=== PATIENT | female | born 1990 | race Hispanic/Latino ===

== ENCOUNTER 2022-05-26 17:59 | Inpatient (IN) | payer OTHER ==
[~2022-05-26] VITALS: Ht 154.9 cm; Wt 70.1 kg
[2022-05-26 18:20] VITALS: BP 103/59
[2022-05-26] MEDS ORDERED: ONDANSETRON 4MG INJ IV PRN (18:30)
[2022-05-26] MEDS ORDERED: NITROGLYCERIN 0.4 MG SL TAB SL PRN (18:30)
[2022-05-26 19:26] LABS: BASOPHILS % (AUTO) 0.4 % (0.0-5.0); HEMATOCRIT 33.2 % (36-48); LYMPHOCYTES % (AUTO) 32.7 % (21.0-51.0); MEAN CORPUSCULAR HEMOGLOBIN 27.7 pg (27.0-33.0); MEAN CORPUSCULAR HGB CONC 32.8 g/dL (32.0-36.0); MEAN CORPUSCULAR VOLUME 84.5 fL (79-99); MONOCYTES % (AUTO) 5.9 % (3.0-13.0); NEUTROPHILS % (AUTO) 57.6 % (40.0-77.0); PLATELET COUNT (AUTO) 350 K/uL (130-400); RED BLOOD CELL COUNT(AUTO) 3.93 MIL/uL (4.00-5.50); RED CELL DISTRIBUTION WIDTH 13.4 % (11.0-15.5); WHITE BLOOD COUNT (AUTO) 9.7 K/uL (4.8-10.8)
[2022-05-26 19:28] LABS: INR 0.99 (0.85-1.15); PROTHROMBIN TIME 10.8 SEC (9.6-11.6)
[2022-05-26 19:30] LABS: PARTIAL THROMBOPLASTIN TIME 31.8 SEC (26.3-35.5)
[2022-05-26] MEDS ORDERED: 0.9%NACL 50ML IV SCH (19:30)
[2022-05-26 19:36] LABS: ALBUMIN 2.8 g/dL (3.5-5.0); CREATININE 0.7 mg/dL (0.5-1.5); MAGNESIUM 1.8 mg/dL (1.80-2.40); POTASSIUM 3.2 mmol/L (3.5-5.1); TOTAL PROTEIN, SERUM 6.5 g/dL (6.0-8.3)
[2022-05-26] MEDS ORDERED: MAGNESIUM 2GM PREMIX 50ML 50 ML IV PRN (20:00)
[2022-05-26] MEDS: FAMOTIDINE 20MG VIAL IV SCH (20:08)
[2022-05-26] MEDS: ZOSYN 3.375GM +NS 50ML IVPB SCH (20:08)
[2022-05-26] MEDS: 0.9%NACL 1000ML 1,000 ML IV SCH (20:09)
[2022-05-26] MEDS ORDERED: BISACODYL 10 MG SUPP.RECT RC SCH (20:30)
[2022-05-26 21:13] VITALS: BP 119/66
[2022-05-26] MEDS: LIDOCAINE HCL-MPF 1% 2ML VIAL IV PRN (22:01)
[2022-05-26] MEDS: POTASSIUM CHLORIDE 20MEQ/100ML 100 ML IV PRN (22:01)
[2022-05-26 22:05] LABS: APPEARANCE,URINE TURBID (CLEAR); BACTERIA,URINE RARE /HPF (None Seen); BILIRUBIN,URINE 1 mg/dL (NEGATIVE); COLOR,URINE DARK-ORANGE (YELLOW); GLUCOSE, URINE (UA) NEGATIVE (NEGATIVE); KETONES,URINE 150 mg/dL (NEGATIVE); LEUKOCYTE ESTERASE ,URINE 250 Leu/uL (NEGATIVE); MUCUS,URINE MOD LPF (None Seen); NITRATE,URINE NEGATIVE (NEGATIVE); OCCULT BLOOD,URINE LARGE (NEGATIVE); OTHER CASTS, URINE 22 /LPF (None Seen); PROTEIN,URINE 70 mg/dL (NEGATIVE); RBC,URINE TNTC /HPF (0-1); UROBILINOGEN,URINE 12 mg/dL (0.2-1.0); WBC,URINE 26-50 /HPF (0-1); YEAST,URINE BUDDING FEW /HPF (None Seen)
[2022-05-27] VITALS (7 sets, daily range): BP systolic 105–116; BP diastolic 58–73
[2022-05-27] MEDS: ZOSYN 3.375GM +NS 50ML IVPB SCH ×3 (04:11→19:53)
[2022-05-27] MEDS: POTASSIUM CHLORIDE 20MEQ/100ML 100 ML IV PRN ×2 (04:16→11:40)
[2022-05-27] MEDS: LIDOCAINE HCL-MPF 1% 2ML VIAL IV PRN ×2 (04:17→11:40)
[2022-05-27] MEDS: 0.9%NACL 1000ML 1,000 ML IV SCH ×2 (06:32→15:22)
[2022-05-27 07:31] LABS: BASOPHILS % (AUTO) 0.6 % (0.0-5.0); HEMATOCRIT 32.4 % (36-48); LYMPHOCYTES % (AUTO) 23.9 % (21.0-51.0); MEAN CORPUSCULAR HEMOGLOBIN 27.8 pg (27.0-33.0); MEAN CORPUSCULAR HGB CONC 32.7 g/dL (32.0-36.0); MONOCYTES % (AUTO) 7.3 % (3.0-13.0); NEUTROPHILS % (AUTO) 63.9 % (40.0-77.0); PLATELET COUNT (AUTO) 338 K/uL (130-400); RED BLOOD CELL COUNT(AUTO) 3.81 MIL/uL (4.00-5.50); RED CELL DISTRIBUTION WIDTH 13.8 % (11.0-15.5)
[2022-05-27 07:45] LABS: ALBUMIN 2.7 g/dL (3.5-5.0); CREATININE 0.7 mg/dL (0.5-1.5); MAGNESIUM 2.2 mg/dL (1.80-2.40); POTASSIUM 3.4 mmol/L (3.5-5.1); TOTAL PROTEIN, SERUM 6.5 g/dL (6.0-8.3)
[2022-05-27] MEDS: FAMOTIDINE 20MG VIAL IV SCH ×2 (09:11→19:53)
[2022-05-27] MEDS ORDERED: GADOTERATE MEGLUMINE 10 MMOL/20 ML VIAL IV ONE (11:53)
[2022-05-27] MEDS ORDERED: LIDOCAINE HCL-MPF 1% 2ML VIAL IV PRN (17:00)
[2022-05-27] MEDS ORDERED: POTASSIUM CHLORIDE 20MEQ/100ML 100 ML IV PRN (17:00)
[2022-05-27] MEDS: KCL 20 MEQ ERTAB PO PRN ×2 (18:32→21:34)
[2022-05-28] VITALS (25 sets, daily range): BP systolic 109–139; BP diastolic 56–92
[2022-05-28] MEDS: 0.9%NACL 1000ML 1,000 ML IV SCH ×3 (00:30→20:35)
[2022-05-28] MEDS: ZOSYN 3.375GM +NS 50ML IVPB SCH ×3 (03:08→20:34)
[2022-05-28 05:11] LABS: BASOPHILS % (AUTO) 0.4 % (0.0-5.0); LYMPHOCYTES % (AUTO) 27.5 % (21.0-51.0); MEAN CORPUSCULAR HEMOGLOBIN 27.7 pg (27.0-33.0); MEAN CORPUSCULAR HGB CONC 32.2 g/dL (32.0-36.0); MONOCYTES % (AUTO) 6.2 % (3.0-13.0); NEUTROPHILS % (AUTO) 61.7 % (40.0-77.0); PLATELET COUNT (AUTO) 319 K/uL (130-400); RED BLOOD CELL COUNT(AUTO) 3.72 MIL/uL (4.00-5.50); RED CELL DISTRIBUTION WIDTH 13.6 % (11.0-15.5)
[2022-05-28 05:38] LABS: ALBUMIN 2.7 g/dL (3.5-5.0); CREATININE 0.7 mg/dL (0.5-1.5); POTASSIUM 3.9 mmol/L (3.5-5.1); TOTAL PROTEIN, SERUM 6.5 g/dL (6.0-8.3)
[2022-05-28] MEDS: FAMOTIDINE 20MG VIAL IV SCH ×2 (10:33→20:34)
[2022-05-28] MEDS ORDERED: LACTATED RINGERS 1000ML 1,000 ML IV ONE ×2 (11:32→12:41)
[2022-05-28] MEDS ORDERED: ZOSYN 3.375GM+NS 50ML 50 ML IVPB ONE (12:43)
[2022-05-28] MEDS ORDERED: BUPIVACAINE/PF 0.25% 10ML VIAL IJ ONE (12:51)
[2022-05-28] MEDS ORDERED: LIDOCAINE HCL 1% 20 ML VIAL ONE (12:51)
[2022-05-28] MEDS ORDERED: LIDOCAINE PF 100MG/5ML (2%) SYRINGE 5ML ONE (12:54)
[2022-05-28] MEDS ORDERED: MIDAZOLAM HCL 1 MG/ML 2ML VIAL ONE (12:54)
[2022-05-28] MEDS ORDERED: DEXAMETHASONE SOD PHOSPHATE 10MG/ML 1ML VIAL ONE (12:54)
[2022-05-28] MEDS ORDERED: SUCCINYLCHOLINE CHLORIDE 20 MG/ML 10 ML VIAL ONE (12:54)
[2022-05-28] MEDS ORDERED: GLYCOPYRROLATE 1 MG/5 ML SYRINGE ONE (12:55)
[2022-05-28] MEDS ORDERED: NEOSTIGMINE 5MG/5ML SYR IV ONE (12:55)
[2022-05-28] MEDS ORDERED: PROPOFOL 10 MG/ML 20ML VIAL IV ONE (12:55)
[2022-05-28] MEDS ORDERED: ROCURONIUM 10MG/1ML SYR 10 MG/ML ML ONE (12:55)
[2022-05-28] MEDS ORDERED: ONDANSETRON 4MG INJ ONE (12:55)
[2022-05-28] MEDS ORDERED: FENTANYL CITRATE PF 50 MCG/1 ML 2ML VIAL ONE (12:56)
[2022-05-28] MEDS ORDERED: FENTANYL CITRATE PF 50 MCG/1 ML 5ML AMP IV ONE (13:35)
[2022-05-28] MEDS ORDERED: MEPERIDINE-PF 25 MG/ML SYG ONE (14:41)
[2022-05-28] MEDS: MORPHINE 2 MG SYG IV PRN (20:42)
[2022-05-28] MEDS ORDERED: HYDROMORPHONE 0.5 MG SYG (0.5MG/0.5ML) IVP ONE (22:30)
[2022-05-29 00:48] VITALS: BP 114/76
[2022-05-29] MEDS: MORPHINE 2 MG SYG IV PRN ×2 (00:57→05:56)
[2022-05-29] MEDS ORDERED: SIMETHICONE 80 MG TAB.CHEW PO SCH (01:30)
[2022-05-29 04:01] VITALS: BP 115/67
[2022-05-29] MEDS: ZOSYN 3.375GM +NS 50ML IVPB SCH (05:08)
[2022-05-29 05:53] LABS: BASOPHILS % (AUTO) 0.4 % (0.0-5.0); EOSINOPHILS % (AUTO) 0.2 % (0.0-8.0); HEMATOCRIT 36.3 % (36-48); LYMPHOCYTES % (AUTO) 12.4 % (21.0-51.0); MEAN CORPUSCULAR HEMOGLOBIN 27.9 pg (27.0-33.0); MEAN CORPUSCULAR HGB CONC 32.2 g/dL (32.0-36.0); MEAN CORPUSCULAR VOLUME 86.4 fL (79-99); MONOCYTES % (AUTO) 4.3 % (3.0-13.0); NEUTROPHILS % (AUTO) 82.2 % (40.0-77.0); PLATELET COUNT (AUTO) 438 K/uL (130-400); RED CELL DISTRIBUTION WIDTH 13.6 % (11.0-15.5); WHITE BLOOD COUNT (AUTO) 16.2 K/uL (4.8-10.8)
[2022-05-29 06:25] LABS: BILIRUBIN,DIRECT 0.3 mg/dL (0.0-0.3); CREATININE 0.6 mg/dL (0.5-1.5); POTASSIUM 4.6 mmol/L (3.5-5.1); TOTAL PROTEIN, SERUM 7.3 g/dL (6.0-8.3)
[2022-05-29] MEDS: 0.9%NACL 1000ML 1,000 ML IV SCH (06:25)
[2022-05-29 08:00] VITALS: BP 116/73
[2022-05-29] MEDS: FAMOTIDINE 20MG VIAL IV SCH (08:17)
[2022-05-29] MEDS ORDERED: ENOXAPARIN SODIUM 40 MG/0.4 ML SYRINGE SQ SCH (11:00)
[2022-05-29 11:30] VITALS: BP 107/55
== END 2022-05-29 16:50 | disposition home or self-care (01) | DRG 854 ==
LOC: 3CH 17:59
PROVIDERS: ADMIT Internal Medicine; ATTEND Internal Medicine
PROC: 0FT44ZZ Resection of Gallbladder, Percutaneous Endoscopic Approach (ICD-10-PCS; principal; 2022-05-28 13:13)
DX: A41.9 Sepsis, unspecified organism (principal); K80.00 Calculus of gallbladder with acute cholecystitis without obstruction; N39.0 Urinary tract infection, site not specified; Z20.822 Contact with and (suspected) exposure to COVID-19; E87.6 Hypokalemia; K66.0 Peritoneal adhesions (postprocedural) (postinfection); K82.8 Other specified diseases of gallbladder; R65.20 Severe sepsis without septic shock
CPT/HCPCS: 36415; 71045; 74183; 80048; 80053; 80061; 80076; 81001; 83605; 83735; 84703; 85025; 85610; 85730; 87040; 87088; 87635; 93005; G0378; J0330; J1100; J1170; J2001; J2175; J2250; J2405; J2543; J2704; J2710; J3010; J3475; J3480; J3490; J7030; J7120